=== PATIENT | male | born 2000 | race Two or more races ===

== ENCOUNTER → 2024-04-22 | Outpatient (BNVA) | payer MEDICAID, SELFPAY | END | disposition home or self-care (01) | PROVIDERS: PCP Nurse Practitioner Family; Referring Provider Nurse Practitioner Family; Visit Provider Nurse Practitioner Family | DX: Z23 Encounter for immunization (principal); B35.1 Tinea unguium | CPT/HCPCS: 90471; 90686; 99214 ==

== ENCOUNTER → 2024-06-17 | Outpatient (BNVA) | payer MEDICAID, SELFPAY | END | disposition home or self-care (01) | PROVIDERS: PCP Nurse Practitioner Family; Referring Provider Nurse Practitioner Family; Visit Provider Nurse Practitioner Family | DX: Z00.01 Encounter for general adult medical examination with abnormal findings (principal); R73.03 Prediabetes; Z68.41 Body mass index [BMI] 40.0-44.9, adult; E78.2 Mixed hyperlipidemia; E55.9 Vitamin D deficiency, unspecified; Z01.83 Encounter for blood typing; R94.5 Abnormal results of liver function studies; B35.1 Tinea unguium; Z71.85 Encounter for immunization safety counseling; I42.8 Other cardiomyopathies; R10.9 Unspecified abdominal pain | CPT/HCPCS: 99215 ==

== ENCOUNTER → 2024-07-01 | Outpatient (BNVA) | payer MEDICAID, SELFPAY | END | disposition home or self-care (01) | PROVIDERS: PCP Nurse Practitioner Family; Referring Provider Nurse Practitioner Family; Visit Provider Nurse Practitioner Family | DX: E78.5 Hyperlipidemia, unspecified (principal); B35.1 Tinea unguium; R73.03 Prediabetes; E78.2 Mixed hyperlipidemia; Z71.2 Person consulting for explanation of examination or test findings; E55.9 Vitamin D deficiency, unspecified | CPT/HCPCS: 99212; G0463 ==